=== PATIENT | male | born 1980 | race African-American/Black ===

== ENCOUNTER 2019-09-09 11:16 | Emergency (ER) | payer MEDICAID ==
[~2019-09-09] VITALS: Ht 175.3 cm; Wt 70.8 kg
[2019-09-09 11:20] VITALS: BP 142/83
--- NOTE | 2019-09-09 11:30 | NUR ---
ED Nurse Note: PT WHEELCHAIRED IN TO ER TODAY C/O LOWER BACK PAIN X YESTERDAY. PT DENIES RECENT INJURY OR TRAUMA. AAO X4 AND AMBULATORY.
[2019-09-09] MEDS ORDERED: Ketorolac 30mg Inj IV ONE (12:00)
[2019-09-09] MEDS ORDERED: Omnipaque-300 100ml vial INJ PRN (12:00)
[2019-09-09 13:10] LABS: EOSINOPHILS % (AUTO) 0.2 % (0.0-3.0); HEMOGLOBIN 16.3 G/DL (14.2-18.0); LYMPHOCYTES % (AUTO) 11.9 % (20.0-45.0); MEAN CORPUSCULAR VOLUME 96 FL (80-99); MONOCYTES % (AUTO) 3.7 % (1.0-10.0); NEUTROPHILS % (AUTO) 83.2 % (45.0-75.0); PLATELET COUNT 423 K/UL (150-450); RED BLOOD COUNT 5.09 M/UL (4.70-6.10); RED CELL DISTRIBUTION WIDTH 12.3 % (11.6-14.8)
[2019-09-09 13:11] LABS: APPEARANCE,URINE CLEAR; BILIRUBIN, URINE NEGATIVE (NEGATIVE); COLOR,URINE PALE YELLOW; GLUCOSE, URINE (UA) NEGATIVE (NEGATIVE); KETONES,URINE 3+ (NEGATIVE); LEUKOCYTE ESTERASE ,URINE NEGATIVE (NEGATIVE); NITRITE,URINE NEGATIVE (NEGATIVE); PH,URINE 5 (4.5-8.0); PROTEIN,URINE 3+ (NEGATIVE); UROBILINOGEN,URINE NORMAL MG/DL (0.0-1.0)
[2019-09-09 13:29] LABS: ANION GAP 15 mmol/L (5-15); BLOOD UREA NITROGEN 17 mg/dL (7-18); CALCIUM 10.3 MG/DL (8.5-10.1); CARBON DIOXIDE 26 MMOL/L (21-32); CHLORIDE 100 MMOL/L (98-107); CREATININE 1.6 MG/DL (0.55-1.30); POTASSIUM 3.8 MMOL/L (3.5-5.1); SODIUM 141 MMOL/L (136-145)
[2019-09-09 13:33] LABS: ALANINE AMINOTRANSFERASE 30 U/L (12-78); ALBUMIN 4.3 G/DL (3.4-5.0); ALBUMIN/GLOBULIN RATIO 0.9 (1.0-2.7); ALKALINE PHOSPHATASE 100 U/L (46-116); ASPARTATE AMINO TRANSFERASE 65 U/L (15-37); BILIRUBIN,TOTAL 0.7 MG/DL (0.2-1.0)
[2019-09-09 13:35] VITALS: BP 152/84
--- NOTE | 2019-09-09 14:51 | Emergency Room Report ---
History of Present Illness General Chief Complaint: Back Pain-No Injury Source: Patient (Roman Navarro MD) Present Illness HPI Patient is a 39-year-old male presents after increased low back pain. He denies any recent trauma. 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 He states back is been hurting for approximately 6 months but had worsened over the past few days while lifting. He denies any recent auto accidents or other trauma. He denies any weakness to his legs. He reports having pain worse with flexion and ambulation. He reports drinking alcohol regularly he states he has not been drinking alcohol for several days.He reports having worsening back pain since yesterday. (Roman Navarro MD) Allergies: Coded Allergies: No Known Allergies (Unverified , 09/09/19) Patient History Past Medical History: see triage record Reviewed Nursing Documentation: PMH: Agreed; PSxH: Agreed (Roman Navarro MD) Nursing Documentation-PMH Past Medical History: No Stated History (Roman Navarro MD) Review of Systems All Other Systems: negative except mentioned in HPI (Roman Navarro MD) Physical Exam Vital Signs Date Time Temp Pulse Resp B/P (MAP) Pulse Ox O2 Delivery O2 Flow Rate FiO2 09/09/19 11:20 97.5 98 20 142/83 98 Room Air Sp02 EP Interpretation: reviewed, normal General Appearance: normal inspection, well appearing, no apparent distress, alert, GCS 15 Head: atraumatic ENT: normal ENT inspection, hearing grossly normal, normal voice Neck: normal inspection, full range of motion, supple, no bony tend Respiratory: normal inspection, lungs clear, normal breath sounds, no respiratory distress, no retraction, no wheezing Cardiovascular #1: regular rate, rhythm, no edema Gastrointestinal: normal inspection, normal bowel sounds, non tender, soft, no guarding, no hernia Genitourinary: no CVA tenderness Musculoskeletal: normal inspection, normal range of motion, tender - multiple areas of midline tenderness to low back Neurologic: normal inspection, alert, oriented x3, responsive, sales service promoter III-XII nml as tested, speech normal Psychiatric: normal inspection, judgement/insight normal, mood/affect normal (Roman Navarro MD) Medical Decision Making Diagnostic Impression: Primary Impression: Fracture of lumbar spine Additional Impressions: T12 compression fracture L1 vertebral fracture L3 vertebral fracture ER Course Patient presented for low back pain. Differential diagnosis include was not limited to pancreatitis, spinal fracture, contusion, spinal epidural abscess, among others. Because of complexity of patient's case laboratory tests and imaging studies were ordered. Patient was noted to have some prior history of alcohol abuse. He denies any recent trauma. CT of the abdomen pelvis read by radiology showed multiple spinal fractures and disc herniations. See radiology report for full details. Patient remains neurologically intact. Patient was endorsed to Dr. Tee pending transfer. Labs Test 09/09/19 12:25 09/09/19 12:45 White Blood Count 10.0 K/UL (4.8-10.8) Red Blood Count 5.09 M/UL (4.70-6.10) Hemoglobin 16.3 G/DL (14.2-18.0) Hematocrit 49.0 % (42.0-52.0) Mean Corpuscular Volume 96 FL (80-99) Mean Corpuscular Hemoglobin 32.1 PG (27.0-31.0) Mean Corpuscular Hemoglobin Concent 33.3 G/DL (32.0-36.0) Red Cell Distribution Width 12.3 % (11.6-14.8) Platelet Count 423 K/UL (150-450) Mean Platelet Volume 4.8 FL (6.5-10.1) Neutrophils (%) (Auto) 83.2 % (45.0-75.0) Lymphocytes (%) (Auto) 11.9 % (20.0-45.0) Monocytes (%) (Auto) 3.7 % (1.0-10.0) Eosinophils (%) (Auto) 0.2 % (0.0-3.0) Basophils (%) (Auto) 1.0 % (0.0-2.0) Prothrombin Time 10.8 SEC (9.30-11.50) Prothromb Time International Ratio 1.0 (0.9-1.1) Activated Partial Thromboplast Time 29 SEC (23-33) Sodium Level 141 MMOL/L (136-145) Potassium Level 3.8 MMOL/L (3.5-5.1) Chloride Level 100 MMOL/L (98-107) Carbon Dioxide Level 26 MMOL/L (21-32) Anion Gap 15 mmol/L (5-15) Blood Urea Nitrogen 17 mg/dL (7-18) Creatinine 1.6 MG/DL (0.55-1.30) Estimat Glomerular Filtration Rate 47.9 mL/min (>60) Glucose Level 76 MG/DL (74-106) Calcium Level 10.3 MG/DL (8.5-10.1) Magnesium Level 2.5 MG/DL (1.8-2.4) Total Bilirubin 0.7 MG/DL (0.2-1.0) Aspartate Amino Transf (AST/SGOT) 65 U/L (15-37) Alanine Aminotransferase (ALT/SGPT) 30 U/L (12-78) Alkaline Phosphatase 100 U/L (46-116) Troponin I 0.000 ng/mL (0.000-0.056) Total Protein 9.0 G/DL (6.4-8.2) Albumin 4.3 G/DL (3.4-5.0) Globulin 4.7 g/dL Albumin/Globulin Ratio 0.9 (1.0-2.7) Lipase 184 U/L (73-393) Urine Color Pale yellow Urine Appearance Clear Urine pH 5 (4.5-8.0) Urine Specific Bowie 1.015 (1.005-1.035) Urine Protein 3+ (NEGATIVE) Urine Glucose (UA) Negative (NEGATIVE) Urine Ketones 3+ (NEGATIVE) Urine Blood 4+ (NEGATIVE) Urine Nitrite Negative (NEGATIVE) Urine Bilirubin Negative (NEGATIVE) Urine Urobilinogen Normal MG/DL (0.0-1.0) Urine Leukocyte Esterase Negative (NEGATIVE) Urine RBC 5-10 /HPF (0 - 0) Urine WBC 0-2 /HPF (0 - 0) Urine Squamous Epithelial Cells Occasional /LPF Urine Bacteria Few /HPF (NONE) (Roman Navarro MD) Last Vital Signs Date Time Temp Pulse Resp B/P (MAP) Pulse Ox O2 Delivery O2 Flow Rate FiO2 09/09/19 11:20 97.5 98 20 142/83 (102) 98 Room Air Status: unchanged (Roman Navarro MD) Reevaluation Time: 16:13 Reevaluation Impression Assumed care of the patient from Dr. Navarro approximately 4:15 PM. This is a 39 -year-old male who presented to the emergency department for atraumatic back pain. Cannot recall any significant trauma over the past 6 months. He does drink alcohol regularly but cannot remember a major accident. CT scan shows multiple vertebral fractures with retropulsion of fragments at L1 and L3. There are also central vertebral disc herniations at T11 and T9 anterior wedging at T12 and slight buckling of the anterior cortex. Patient is neurologically intact. He was amatory in the emergency department does not have any urinary incontinence. He will require transport to a facility with neurosurgical capabilities. Labs are otherwise within normal limits. Patient is stable for transfer. 1730: Discussed with Dr. Balderrama of [facility]. The patient has been accepted to [facility] with a have neurosurgical capabilities. He remains neurologically intact and no other acute complaints at this time. Patient remaines stable for transfer. (Vin Tee MD) Disposition: XFER SHT-TRM HOSP Condition: Stable Scripts No Active Prescriptions or Reported Meds Referrals: [facility],REFERRING (PCP) Roman Navarro MD Sep 09, 2019 14:51 Vin Tee MD Sep 09, 2019 16:14
--- NOTE | 2019-09-09 14:54 | Diagnostic Imaging Report ---
Indication: Abdominal pain. Vague history Technique: Continuous helical transaxial imaging of the abdomen and pelvis was obtained from the lung bases to the pubic symphysis. No intravenous contrast was administered. Coronal 2-D reformats were also obtained. Automatic Exposure Control was utilized. Total Dose length Product (DLP): [address] Dose Index Volume (CTDIvol): 15.7 mGy Comparison: none Findings: There is mild perinephric stranding. There is no hydronephrosis or renal stones. Gallbladder is unremarkable. No abnormal fluid collections are seen. Bowel gas pattern is nonobstructive. Bladder is unremarkable. There is no free fluid or evidence of abscess. There are multiple vertebral fractures present. At L3, there is a prominent vertically oriented lucency through the midportion of the vertebra resulting in both anterior and posterior displacement of the vertebral body and about 8 to 9 mm distraction between the anterior and posterior portions. The vertebral body appears somewhat sclerotic suggesting this may be a subacute injury. There is mild to moderate retropulsion with compression of the anterior part of the thecal sac. There is a comminuted fracture at L1 with a prominent vertical fracture in the midportion of the L1 vertebra with moderate retropulsion of the vertebral endplate into the canal. Nerve roots are not specifically identified on CT but one would expect some degree of nerve root compression. There is also a mild anterior wedge deformity of the T12 vertebra with slight buckling of the anterior cortex. There are central vertebral disc herniations or Schmorl's nodes involving the superior endplates of T11 and T9. IMPRESSION: Multiple vertebral fractures as described above acute to subacute in age. Retropulsed fragments at L1 and L3 are noted. Consultation with the spine surgeon recommended. No acute findings in the abdomen or pelvis identified. Critical value communication. Findings were discussed via telephone with Dr. Navarro in the emergency department 2:40 PM 09/09/2019. The CT scanner at [facility] is accredited by the [employer] and the scans are performed using dose optimization techniques as appropriate to a performed exam including Automatic Exposure control.
--- NOTE | 2019-09-09 15:01 | NUR ---
ED Nurse Note: PT INFORMED OF HOSPITAL TRANSFER. PT INSTRUCTED ON NOTHING BY MOUTH DIET AND BED REST. PT VERBALIZED UNDERSTANDING.
[2019-09-09 15:25] VITALS: BP 149/90
[2019-09-09 17:30] VITALS: BP 152/86
--- NOTE | 2019-09-09 17:56 | NUR ---
ED Nurse Note: PT STILL ON BED REST AND KEPT NPO. NO ACUTE DISRESS NOTED. FALL PRECAUTIONS IMPLEMENTED: SIDE RAILS UP X2, BED LOCKED IN LOWEST POSITION.
[2019-09-09 19:20] VITALS: BP 155/82
--- NOTE | 2019-09-09 19:20 | NUR ---
ED Nurse Note: TRANSFERRED TO [facility] SENT WITH PT VIA [facility].
== END 2019-09-09 20:10 | disposition short-term general hospital (02) ==
LOC: EMR 11:50
DX: M48.54XA Collapsed vertebra, not elsewhere classified, thoracic region, initial encounter for fracture (principal); M48.56XA Collapsed vertebra, not elsewhere classified, lumbar region, initial encounter for fracture; R10.9 Unspecified abdominal pain; F10.10 Alcohol abuse, uncomplicated
CPT/HCPCS: 36415; 74176; 80053; 81003; 83690; 83735; 84484; 85025; 85610; 85730; 96374; J1885; J7040; Z7502; 99284